=== PATIENT | male | born 1970 | race Caucasian/White ===

== ENCOUNTER 2016-12-23 06:54 | Emergency (ER) | payer SELFPAY ==
[~2016-12-23] VITALS: Ht 180.3 cm; Wt 90.7 kg
[2016-12-23] MEDS ORDERED: TDAP [DIPH/PERTUSSIS/TET] 0.5 ML VIAL IM ONE ×2 (07:07→07:30)
--- NOTE | 2016-12-23 07:17 | NUR ---
DR. MAY IS AT THE BEDSIDE SUTURING PT'S LACERATION ON LEFT HAND INDEX FINGER.
--- NOTE | 2016-12-23 07:17 | NUR ---
TETANUS SHOT GIVEN IM IN LEFT DELTOID. LOT [id number] EXP 12/31/17
--- NOTE | 2016-12-23 07:20 | NUR ---
REPORT GIVEN TO ALESHA WEST
[2016-12-23 07:30] VITALS: BP 134/85
[2016-12-23] MEDS ORDERED: LIDOCAINE 0.5% HCL 50 ML VIAL IJ ONE (07:30)
--- NOTE | 2016-12-23 07:30 | NUR ---
Patient discharged to home in stable condition. Written and verbal after care instructions given. Patient verbalizes understanding of instruction. NAD. VS WNL.
== END 2016-12-23 07:32 | disposition home or self-care (01) ==
LOC: ER 06:59
DX: S61.211A Laceration without foreign body of left index finger without damage to nail, initial encounter (principal); W26.0XXA Contact with knife, initial encounter; Y93.89 Activity, other specified; Y92.000 Kitchen of unspecified non-institutional (private) residence as the place of occurrence of the external cause; Y99.9 Unspecified external cause status
CPT/HCPCS: 12001; 90471; 90715; 99283; A4606; A6402; Z7610

== ENCOUNTER 2017-01-04 07:38 | Emergency (ER) | payer BC ==
[~2017-01-04] VITALS: Ht 180.3 cm; Wt 90.7 kg
[2017-01-04 07:38] VITALS: BP 117/87
== END 2017-01-04 07:54 | disposition home or self-care (01) ==
LOC: ER 07:40
DX: S61.211D Laceration without foreign body of left index finger without damage to nail, subsequent encounter (principal); W26.0XXD Contact with knife, subsequent encounter
CPT/HCPCS: 99282; A4606; Z7610